=== PATIENT | female | born 2005 | race African-American/Black ===

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

== ENCOUNTER 2024-07-26 17:21 | Emergency (ER) | payer SELFPAY ==
[2024-07-26] MEDS ORDERED: Loratadine 10 MG TAB ONE (18:09)
== END 2024-07-26 18:34 | disposition home or self-care (01) ==
LOC: ERS 17:21
DX: J30.2 Other seasonal allergic rhinitis (principal); F17.290 Nicotine dependence, other tobacco product, uncomplicated
CPT/HCPCS: 99282

== ENCOUNTER 2024-10-14 09:02 | Emergency (ER) | payer OTHER, SELFPAY ==
[2024-10-14] MEDS ORDERED: Docusate Sodium 100 MG/10 ML UDCUP FS SCH (09:30)
== END 2024-10-14 10:27 | disposition home or self-care (01) ==
LOC: ERS 09:02
DX: B34.9 Viral infection, unspecified (principal); H61.22 Impacted cerumen, left ear; E66.9 Obesity, unspecified; F17.290 Nicotine dependence, other tobacco product, uncomplicated
CPT/HCPCS: 69209; 87428; 99283